=== PATIENT | female | born 1995 | race African-American/Black ===

== ENCOUNTER 2017-10-19 18:08 | Emergency (ER) | payer SELFPAY ==
[2017-10-19 18:37] LABS: Bilirubin Small (Negative); Blood, Urine Negative (Negative); Clarity Clear (Clear); Glucose, Urine (Dipstick) Negative (Negative); Leukocyte Negative (Negative); Nitrite Negative (Negative); Protein, Urine (Dipstick) Trace mg/dL (Neg-Trace); Urobilinogen 0.2 mg/dL (0.2-1.0); pH, Urine 5.5 (5.0-9.0)
[2017-10-19 18:38] LABS: Pregnancy Test - Urine (BHCG) Negative (Negative); Pregu Control Background? CLEAR/WHITE (CLR/WHITE); Pregu Control Bar Appear? YES (CONTROL BAR); Specific Gravity 1.033 (1.002-1.036); Specific Gravity, Urine 1.033 (1.002-1.036)
[2017-10-19] MEDS ORDERED: Ketorolac Tromethamine 30 MG/ML VIAL ONE (19:01)
[2017-10-19 19:18] LABS: ALT (SGPT) 8 U/L (8-55); AST (SGOT) 12 U/L (5-34); Albumin 4.4 g/dL (3.5-5.0); Alkaline Phosphatase 84 U/L (40-150); Anion Gap 13 mmol/L (10-20); BUN (Urea Nitrogen) 14 mg/dL (7.0-18.7); Bilirubin, Total 0.6 mg/dL (0.2-1.2); Calc. Creatinine Clearance 0 mL/min (70-130); Calcium 9.4 mg/dL (7.8-10.44); Carbon Dioxide 24 mmol/L (22-29); Chloride 107 mmol/L (98-107); Estimated GFR-MDRD Greater than 90; Globulin 3.4 g/dL (2.4-3.5); Glucose 90 mg/dL (70-105); Potassium 3.9 mmol/L (3.5-5.1); Protein, Total 7.8 g/dL (6.0-8.3); Sodium 140 mmol/L (136-145)
[2017-10-19 19:33] LABS: Hemoglobin 10.6 g/dL (12.0-16.0); Mean Corpuscular HGB CONC 32.5 g/dL (32.0-36.0); Mean Corpuscular Hemoglobin 26.8 pg (27.0-31.0); Mean Corpuscular Volume 82.5 fl (81.0-99.0); Mean Platelet Volume 8.2 fL (7.4-10.4); Platelet Count 254 thou/uL (130-400); RBC Distribution Width 12.1 % (11.5-14.5); Red Blood Cell (RBC) Count 3.96 mill/uL (4.20-5.40); White Blood Cell (WBC) Count 4.6 thou/uL (4.8-10.8)
[2017-10-19 19:34] LABS: Band 1 % (5-11); Eosinophils 4 % (0-10); Hypochromia SLIGHT = 6-15 cells (100X) (0-5/hpf); Lymphocytes 38 % (21-51); MDiff Complete? YES; Monocytes 7 % (0-10); Neutrophil 49 % (42-75); PLT Morphology Comment Appears Adequate
--- NOTE | 2017-10-19 21:27 | CT ---
NONCONTRAST CT ABDOMEN AND PELVIS 10/19/17 HISTORY: Left flank pain for two days. COMPARISON: None available. FINDINGS: Lack of intravenous contrast limits evaluation of the parenchymal organs. However, the lung bases, li milly, spleen, pancreas, bilateral adrenal glands, kidneys, decompressed urinary bladder, and ureters d emonstrate a grossly normal nonenhanced CT appearance. There is no evidence of hydronephrosis. No renal or ureteral calculi are seen bilaterally. There is a low density structure in the right adnexal in the posterior aspect right pelvis which may represent a fluid filled loop of small bowel, but a cystic lesion involving the right ovary cannot be entirely excluded based on this exam.. A moderate amount of retained fecal material seen throughout the colon suggesting an element of const ipation. The appendix is unable to be visualized due to multiple unopacified structures in the pelvis. IMPRESSION: 1. No renal or ureteral calculi are seen bilaterally. 2. Findings suggesting an element of constipation. 3. Low density area within the right pelvis which may represent a fluid filled loop of bowel. Ho wever, a cyst or cystic lesion involving the right ovary cannot be entirely excluded as findings in t he right lower quadrant are unopacified, and there is lack of intra-abdominal fat. POS: PATRICIA
== END 2017-10-19 19:55 | disposition home or self-care (01) ==
LOC: SCSER 18:08
DX: R10.9 Unspecified abdominal pain (principal); R21 Rash and other nonspecific skin eruption
CPT/HCPCS: 74176; 80053; 81003; 81025; 85025; 96374; J1885